=== PATIENT | male | born 1985 | race Caucasian/White ===

== ENCOUNTER 2020-01-06 20:17 | Emergency (ER) | payer MEDICAID, OTHER ==
--- NOTE | 2020-01-06 20:27 | EDM.PDOC ---
ED HPI GENERAL MEDICAL PROBLEM - General Stated Complaint: EMS ARRIVAL CLAVICLE FRACTURE Time Seen by Provider: 01/06/20 20:20 Source of Information: Reports: Patient History Limitations: Reports: No Limitations - History of Present Illness INITIAL COMMENTS - FREE TEXT/NARRATIVE: HISTORY AND PHYSICAL: History of present illness: Patient is a 34-year-old male who presents to the emergency room from [facility] with complaints of left clavicular pain. He was on the bottom bunk when he fell onto the ground landing on his left shoulder. He states although he landed on his scapula he has clavicle pain. He denies hitting his head or having any loss of consciousness. Denies any other extremity involvement. Offers no systemic complaints. Patient is accompanied by law enforcement. Review of systems: As per history of present illness and below otherwise all systems reviewed and negative. Past medical history: As per history of present illness and as reviewed below otherwise noncontributory. Surgical history: As per history of present illness and as reviewed below otherwise noncontributory. Social history: See social history for further information Family history: As per history of present illness and as reviewed below otherwise noncontributory. Physical exam: General: Well-developed and well-nourished 34-year-old male. Alert and oriented. Nontoxic-appearing and in no acute distress. HEENT: Atraumatic, normocephalic, pupils equal and reactive bilaterally, negative for conjunctival pallor or scleral icterus, mucous membranes moist, TMs normal bilaterally, throat clear, neck supple, nontender, trachea midline. No drooling or trismus noted. No meningeal signs. No hot potato voice noted. Lungs: Clear to auscultation, breath sounds equal bilaterally, chest nontender. Heart: S1S2, regular rate and rhythm without overt murmur Abdomen: Soft, nondistended, nontender. Negative for masses or hepatosplenomegaly. Negative for costovertebral tenderness. Pelvis: Stable nontender. C-spine/Back: No pinpoint vertebral tenderness upon palpation. No crepitus, step-offs or obvious deformities. Patient is ambulatory into the emergency room without difficulty or deficit. Able to rock back on heels and walk on toes. Denies any urinary or fecal incontinence. Denies any numbness, tingling or saddle paresthesia. No concerns of serious infection, fracture or cord compression, or cauda equina syndrome. Deep tendon reflexes brisk bilaterally. Skin: Intact, warm, dry. No lesions or rashes noted. Extremities: Pain with palpation along the left clavicle, no tenting or broken skin. He moves all extremities per self without difficulty or deficits. Neurovascular unremarkable. Neuro: Awake, alert, oriented. Cranial nerves II through XII unremarkable. Cerebellum unremarkable. Motor and sensory unremarkable throughout. Exam nonfocal. Notes: X-ray shows old fracture deformity involving the left lateral clavicle. Small sub-arachnoidal spur. No fracture or dislocation involving the left clavicle shoulder or humeral head. There is a mild stable nodule involving the left lung apex which is stable. Remainder is negative. Offered patient a sling. Or the sling over the next 2 to 3 days, if pain continues wear until following up with orthopedics. We discussed follow-up care with orthopedic provider. Supportive care measures were reviewed and discussed. Voices understanding and is agreeable to plan of care. Denies any further questions or concerns at this time. Diagnostics: Left shoulder x-ray, left clavicle Therapeutics: Sling Prescription: None Impression: Encounter for medical screening exam Shoulder injury left Plan: 1. Rest, ice, elevate the affected extremity. Please wear the splint as directed. 2. Tylenol and/or Ibuprofen as needed for pain management. 3. Follow up with the Orthopedic provider as we discussed. Return to the ED as needed and as discussed. Definitive disposition and diagnosis as appropriate pending reevaluation and review of above. - Related Data Allergies Allergy/AdvReac Type Severity Reaction Status Date / Time No Known Allergies Allergy Verified 06/14/18 09:55 Home Meds: Home Meds . [No Known Home Meds] 06/14/18 [History] Past Medical History - Past Health History Medical/Surgical History: Denies Medical/Surgical History HEENT History: Reports: None Cardiovascular History: Reports: None Respiratory History: Reports: None Gastrointestinal History: Reports: None Musculoskeletal History: Reports: Other (See Below) Other Musculoskeletal History: hx broken collar bone L Neurological History: Reports: None Psychiatric History: Reports: None Endocrine/Metabolic History: Reports: None Dermatologic History: Reports: None - Infectious Disease History Infectious Disease History: Reports: None - Past Surgical History HEENT Surgical History: Reports: None Cardiovascular Surgical History: Reports: None Respiratory Surgical History: Reports: None Neurological Surgical History: Reports: None Social & Family History - Family History Family Medical History: Noncontributory - Caffeine Use Caffeine Use: Reports: Coffee, Energy Drinks, Soda, Tea ED ROS GENERAL - Review of Systems Review Of Systems: Comprehensive ROS is negative, except as noted in HPI. ED EXAM, UPPER BACK/NECK PAIN - Physical Exam Exam: See Below (See dictation) Course - Orders/Labs/Meds Orders: Active Orders 24 hr Category Date Time Status DME for Discharge [COMM] Stat Oth 01/06/20 20:38 Ordered Departure - Departure Time of Disposition: 21:12 Disposition: Home, Self-Care 01 Clinical Impression: Encounter for medical screening examination Injury of left shoulder Qualifiers: Encounter type: initial encounter Qualified Code(s): S49.92XA - Unspecified injury of left shoulder and upper arm, initial encounter - Discharge Information Instructions: Shoulder Pain, [id number] Referrals: PCP,None [Primary Care Provider] - Additional Instructions: The following information is given to patients seen in the emergency department who are being discharged to home. This information is to outline your options for follow-up care. We provide all patients seen in our emergency department with a follow-up referral. The need for follow-up, as well as the timing and circumstances, are variable depending upon the specifics of your emergency department visit. If you don't have a primary care physician on staff, we will provide you with a referral. We always advise you to contact your personal physician following an emergency department visit to inform them of the circumstance of the visit and for follow-up with them and/or the need for any referrals to a consulting specialist. The emergency department will also refer you to a specialist when appropriate. This referral assures that you have the opportunity for follow-up care with a specialist. All of these measure are taken in an effort to provide you with optimal care, which includes your follow-up. Under all circumstances we always encourage you to contact your private physician who remains a resource for coordinating your care. When calling for follow-up care, please make the office aware that this follow-up is from your recent emergency room visit. If for any reason you are refused follow-up, please contact the [facility] Emergency Department at and asked to speak to the emergency department charge nurse. [facility] Primary Care [address] [place] [address] [facility] [address] [place] [address] Thank you for choosing the [facility] emergency department in [place] for your medical needs today. It was a pleasure caring for you. You were seen in the emergency department for shoulder injury. Right shoulder an old fracture deformity, no new fractures, dislocation or new findings are noted. 1. Rest, ice, elevate the affected extremity. Please wear the splint as directed. 2. Tylenol and/or Ibuprofen as needed for pain management. 3. Follow up with the Orthopedic provider as we discussed. Return to the ED as needed and as discussed.
--- NOTE | 2020-01-06 20:58 | CR ---
INDICATION: Rolled off bunk bed and fell on shoulder. Technique : Two views left clavicle and three views left shoulder COMPARISON: Left shoulder and clavicle views 01/10/2018. FINDINGS: Old fracture deformity involving the left lateral clavicle. Small subacromial spur new. No acute fracture or dislocation involving the left clavicle, shoulder or humeral head. Mild stable nodularity involving left lung apex is likely fibrotic given the stability. Remainder negative. Dictated by Josemanuel Patel MD @ Jan 06 2020 8:54PM Signed by Dr. Josemanuel Patel @ Jan 06 2020 8:56PM
--- NOTE | 2020-01-06 20:58 | CR ---
INDICATION: Rolled off bunk bed and fell on shoulder. Technique : Two views left clavicle and three views left shoulder COMPARISON: Left shoulder and clavicle views 01/10/2018. FINDINGS: Old fracture deformity involving the left lateral clavicle. Small subacromial spur new. No acute fracture or dislocation involving the left clavicle, shoulder or humeral head. Mild stable nodularity involving left lung apex is likely fibrotic given the stability. Remainder negative. Dictated by Josemanuel Patel MD @ Jan 06 2020 8:53PM Signed by Dr. Josemanuel Patel @ Jan 06 2020 8:56PM
[2020-01-06 21:16] VITALS: BP 120/81; PULSE 85
[2020-01-06] MEDS ORDERED: Ibuprofen 800 MG Tab PO ONE (21:18)
[2020-01-06] MEDS ORDERED: Ibuprofen 800 MG Tab ONE (21:19)
== END 2020-01-06 21:26 ==
LOC: MW.ED 20:17
DX: S49.92XA Unspecified injury of left shoulder and upper arm, initial encounter (principal); W08.XXXA Fall from other furniture, initial encounter; Y92.149 Unspecified place in prison as the place of occurrence of the external cause
CPT/HCPCS: 73000; 73030; 99283; A9270

== ENCOUNTER 2020-03-13 22:41 | Emergency (ER) | payer SELFPAY ==
--- NOTE | 2020-03-13 23:29 | EDM.PDOC ---
ED HPI GENERAL MEDICAL PROBLEM - General Chief Complaint: General Stated Complaint: medical clearance Time Seen by Provider: 03/13/20 23:22 - History of Present Illness INITIAL COMMENTS - FREE TEXT/NARRATIVE: CHIEF COMPLAINT(S): Medical clearance HISTORY OF PRESENT ILLNESS: This is a 34-year-old man without any significant past medical history who comes to the emergency department with a chief complaint of medical clearance. 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 The patient currently denies any symptoms at all whatsoever. He denies any fevers, chills, chest pain, shortness of breath, abdominal pain, nausea or vomiting. He denies any history of contact with anybody with coronavirus. He denies any symptoms of coronavirus. He denies any ingestions. REVIEW OF SYSTEMS: Constitutional: Denies fever, chills. Eyes: Denies eye pain Ears, Nose, Mouth, & Throat: Denies earache Cardiovascular: Denies chest pain Respiratory: Denies shortness of breath Gastrointestinal: Denies Nausea, vomiting, diarrhea, hematochezia. Genitourinary: Denies hematuria Skin:Denies a rash Neurological: Denies blurred vision Psychiatric: Denies depression PAST MEDICAL HISTORY: As per history of present illness and as reviewed below otherwise noncontributory. SURGICAL HISTORY: As per history of present illness and as reviewed below otherwise noncontributory. SOCIAL HISTORY: As per history of present illness and as reviewed below otherwise noncontributory. FAMILY HISTORY: As per history of present illness and as reviewed below otherwise noncontributory. EXAMINATION OF ORGAN SYSTEMS/BODY AREAS: Constitutional: Blood pressure was 141/89, heart rate 81, respiratory rate 18 with an oxygen saturation 98% on room air. Temperature 36.6 General: Overall well-appearing man who is in no acute distress Psychiatric: Appropriate mood and affect. Eyes: No scleral icterus or conjunctival erythema ENMT: Moist mucous membranes. No pharyngeal erythema Cardiovascular: Regular, rate, and rhythym. No gallops, murmurs, or rubs. Bilateral upper extremity pulses symmetric and intact. No peripheral edema. No JVD. Respiratory: Lungs clear to auscultation bilaterally. No wheezes, rales, or rhonchi. Gastrointestinal: Soft, non-tender, non-distended. Normoactive bowel sounds Genitourinary: No suprapubic tenderness Musculoskeletal: Normal range of motion. Skin: No lesions or abrasions. Neurological: Alert, GCS 15 MEDICAL DECISION MAKING AND COURSE IN THE ED WITH INTERPRETATION/REVIEW OF DIAGNOSTIC STUDIES: This is a 34-year-old man without any significant past medical history who comes to the emergency department with chief complaint of medical clearance who has no complaints has a normal physical examination and normal vital signs except for mildly elevated blood pressure. At this time I do not believe the patient requires any further work-up and is cleared medically for transportation to the residential. DISPOSITION: The patient was transported to residential in stable condition CONDITION: Good PROCEDURES: None FINAL IMPRESSION(S)/DIAGNOSES: 1. Acute encounter for medical clearance Wilmer Nice M.D. upper left jaw Pain Score (Numeric/FACES): 8 - Related Data Allergies Allergy/AdvReac Type Severity Reaction Status Date / Time No Known Allergies Allergy Verified 03/13/20 22:57 Home Meds: Home Meds . [No Known Home Meds] 06/14/18 [History] Past Medical History - Past Health History Medical/Surgical History: Denies Medical/Surgical History HEENT History: Reports: None Cardiovascular History: Reports: None Respiratory History: Reports: None Gastrointestinal History: Reports: None Genitourinary History: Reports: None Musculoskeletal History: Reports: Other (See Below) Other Musculoskeletal History: hx broken collar bone L Neurological History: Reports: None Psychiatric History: Reports: None Endocrine/Metabolic History: Reports: None Hematologic History: Reports: None Immunologic History: Reports: None Dermatologic History: Reports: None - Infectious Disease History Infectious Disease History: Reports: None - Past Surgical History Head Surgeries/Procedures: Reports: None HEENT Surgical History: Reports: None Cardiovascular Surgical History: Reports: None Respiratory Surgical History: Reports: None Neurological Surgical History: Reports: None Social & Family History - Family History Family Medical History: Noncontributory Endocrine/Metabolic: Reports: None - Caffeine Use Caffeine Use: Reports: Energy Drinks, Soda - Recreational Drug Use Recreational Drug Use: Yes ED ROS GENERAL - Review of Systems Review Of Systems: See Below ED EXAM, GENERAL - Physical Exam Exam: See Below Course - Vital Signs Last Recorded V/S: Last Vital Signs Temp 36.1 C 03/13/20 23:43 Pulse 95 03/13/20 23:43 Resp 14 03/13/20 23:43 BP 137/90 03/13/20 23:43 Pulse Ox 97 03/13/20 23:43 Departure - Departure Time of Disposition: 23:36 Disposition: Home, Self-Care 01 Condition: Good Clinical Impression: Medical clearance for incarceration - Discharge Information *PRESCRIPTION DRUG MONITORING PROGRAM REVIEWED*: No *COPY OF PRESCRIPTION DRUG MONITORING REPORT IN PATIENT INES: No Instructions: Medical Screening Exam Referrals: PCP,None [Primary Care Provider] - Forms: ED Department Discharge Care Plan Goals: The following information is given to patients seen in the emergency department who are being discharged to home. This information is to outline your options for follow-up care. We provide all patients seen in our emergency department with a follow-up referral. The need for follow-up, as well as the timing and circumstances, are variable depending upon the specifics of your emergency department visit. If you don't have a primary care physician on staff, we will provide you with a referral. We always advise you to contact your personal physician following an emergency department visit to inform them of the circumstance of the visit and for follow-up with them and/or the need for any referrals to a consulting specialist. The emergency department will also refer you to a specialist when appropriate. This referral assures that you have the opportunity for follow-up care with a specialist. All of these measure are taken in an effort to provide you with optimal care, which includes your follow-up. Under all circumstances we always encourage you to contact your private physician who remains a resource for coordinating your care. When calling for follow-up care, please make the office aware that this follow-up is from your recent emergency room visit. If for any reason you are refused follow-up, please contact the [facility] Emergency Department at and asked to speak to the emergency department charge nurse. [facility] Primary Care [address] [place] [id number] [facility] [address] [place] [id number] Sepsis Event Note (ED) - Evaluation Sepsis Screening Result: No Definite Risk - Focused Exam Vital Signs: Vital Signs Temp Pulse Resp BP Pulse Ox 03/13/20 23:43 36.1 C 95 14 137/90 97 03/13/20 22:57 36.6 C 81 18 141/89 H 98
[2020-03-13 23:44] VITALS: BP 137/90; PULSE 95
== END 2020-03-13 23:45 ==
LOC: MW.ED 22:41
DX: Z02.89 Encounter for other administrative examinations (principal)
CPT/HCPCS: 99282; 99283

== ENCOUNTER 2022-11-29 12:56 | Emergency (ER) | payer OTHER ==
[2022-11-29] MEDS ORDERED: Acetaminophen 500 MG Tab PO STA (13:14)
[2022-11-29] MEDS ORDERED: Ibuprofen 800 MG Tab PO STA (13:14)
[2022-11-29 14:34] VITALS: BP 119/88; PULSE 78
== END 2022-11-29 14:38 ==
LOC: MW.ED 12:56
DX: S93.402A Sprain of unspecified ligament of left ankle, initial encounter (principal); F17.210 Nicotine dependence, cigarettes, uncomplicated; Z02.89 Encounter for other administrative examinations; X50.1XXA Overexertion from prolonged static or awkward postures, initial encounter; Y93.67 Activity, basketball
CPT/HCPCS: 73610; 73630; 99283; A9270

== ENCOUNTER 2023-11-22 13:23 | Emergency (ER) | payer SELFPAY ==
[2023-11-22] MEDS: Ketorolac 30 MG/ML SDV IM STA (14:30)
[2023-11-22 16:12] VITALS: BP 126/78; PULSE 84
== END 2023-11-22 15:33 | disposition home or self-care (01) ==
LOC: MW.ED 13:23
DX: S93.401A Sprain of unspecified ligament of right ankle, initial encounter (principal); S93.601A Unspecified sprain of right foot, initial encounter; F17.210 Nicotine dependence, cigarettes, uncomplicated; Z75.8 Other problems related to medical facilities and other health care; X58.XXXA Exposure to other specified factors, initial encounter
CPT/HCPCS: 73610; 96372; 99283; J1885

== ENCOUNTER 2024-06-04 17:53 | Day surgery (SDC) | payer SELFPAY ==
[2024-06-04 19:10] LABS: BASOPHILS ABSOLUTE AUTO 0.07 K/uL (0.00-0.20); BASOPHILS PERCENT AUTO 0.5 % (0.0-1.0); EOSINOPHILS ABSOLUTE AUTO 0.11 K/uL (0.00-0.45); EOSINOPHILS PERCENT AUTO 0.8 % (0.0-6.0); HEMATOCRIT 46.3 % (42.0-52.0); HEMOGLOBIN 16.2 g/dL (14.0-18.0); IMMATURE GRAN ABSOLUTE AUTO 0.05 K/uL (0.00-0.05); IMMATURE GRAN PERCENT AUTO 0.4 % (0.0-0.4); LYMPHOCYTES ABSOLUTE AUTO 1.47 K/uL (1.00-4.80); LYMPHOCYTES PERCENT AUTO 10.9 % (24.0-44.0); MEAN CORPUSCULAR HEMOGLOBIN 29.3 pg (28.0-32.0); MEAN CORPUSCULAR VOLUME 83.7 fL (83.0-99.0); MEAN PLATELET VOLUME 9.3 fL (9.4-12.4); MONOCYTES ABSOLUTE AUTO 0.76 K/uL (0.00-0.80); MONOCYTES PERCENT AUTO 5.6 % (0.0-8.0); NEUTROPHILS ABSOLUTE AUTO 11.08 K/uL (1.80-7.70); NEUTROPHILS PERCENT AUTO 81.8 % (41.0-71.0); PLATELET COUNT,PLT 244 K/uL (150-400); RED BLOOD CELL COUNT 5.53 M/uL (4.52-5.90); WHITE BLOOD CELL COUNT,WBC 13.54 K/uL (3.9-11.3)
[2024-06-04 19:34] LABS: A/G RATIO 1.1 (0.9-1.6); ALBUMIN 4.1 g/dL (3.4-5.0); BILIRUBIN TOTAL 0.4 mg/dL (0.2-1.0); CALCIUM 8.5 mg/dL (8.5-10.1); CARBON DIOXIDE,CO2 28.2 mmol/L (21.0-32.0); EST CRCL DRUG DOSING (CG) 111.01 mL/min; MAGNESIUM 1.8 mg/dL (1.8-2.4); POTASSIUM,K 4.2 mmol/L (3.5-5.1); PROTEIN TOTAL,TP 7.8 g/dL (6.4-8.2)
[2024-06-04] MEDS: Sodium Chloride 0.9% 1,000 ML IV STA (20:23)
[2024-06-04] MEDS: Ondansetron 4 MG/2 ML SDV IVPUSH PRN (20:24)
[2024-06-04] MEDS: Morphine 4 MG/ML Syringe IVPUSH ONE (20:24)
[2024-06-04] MEDS ORDERED: ceFAZolin 1 GM Vial ONE (21:10)
[2024-06-04] MEDS ORDERED: Bupivacaine 0.5% 30 ML SDV ONE (21:10)
[2024-06-04] MEDS ORDERED: dexmedeTOMIDine HCl 200 MCG/2 ML SDV ONE (21:12)
[2024-06-04] MEDS ORDERED: Propofol 200 MG/20 ML SDV ONE (21:12)
[2024-06-04] MEDS ORDERED: fentaNYL 100 MCG/2 ML SDV ONE (21:12)
[2024-06-04] MEDS ORDERED: Rocuronium Bromide 50 MG/5 ML Syringe ONE (21:12)
[2024-06-04] MEDS ORDERED: Water For Injection, Sterile 20 ML ONE (21:12)
[2024-06-04] MEDS ORDERED: Bupivacaine 0.25% 30 ML SDV ONE (21:18)
[2024-06-04] MEDS: Lactated Ringers 1,000 ML IV SCH (21:35)
[2024-06-04] MEDS ORDERED: Dexamethasone 4 MG/ML 5 ML MDV ONE ×2 (22:02→22:30)
[2024-06-04] MEDS ORDERED: Ondansetron 4 MG/2 ML SDV ONE ×2 (22:02→22:30)
[2024-06-04] MEDS ORDERED: cefOXitin 1 GM Vial ONE (22:08)
[2024-06-04] MEDS ORDERED: Ketorolac 30 MG/ML SDV ONE (23:03)
[2024-06-04] MEDS ORDERED: Sugammadex Sodium 200 MG/2 ML VIAL IV ONE (23:03)
[2024-06-04] MEDS ORDERED: HYDROmorphone 2 MG/ML Syringe ONE (23:07)
[2024-06-04] MEDS ORDERED: Acetaminophen/HYDROcodone 325-5 MG Tab PO PRN (23:26)
[2024-06-04] MEDS ORDERED: Ondansetron 4 MG/2 ML SDV IVPUSH PRN (23:26)
[2024-06-04] MEDS ORDERED: Lactated Ringers 1,000 ML IV SCH (23:30)
[2024-06-04] MEDS ORDERED: Naloxone 0.4 MG/ML SDV IVPUSH PRN (23:30)
[2024-06-05] MEDS: Morphine 2 MG/ML SYRINGE IVPUSH PRN (03:52)
[2024-06-05] MEDS: Acetaminophen/HYDROcodone 325-5 MG Tab PO PRN (07:54)
[2024-06-05 11:06] VITALS: BP 144/70; PULSE 78
== END 2024-06-05 11:15 | disposition home or self-care (01) ==
LOC: MW.ED 17:53 → MW.SDS 21:51 → MW.MS 21:51 → MW.SDS 06-05 11:15
PROVIDERS: ATTEND Surgery
DX: K35.33 Acute appendicitis with perforation, localized peritonitis, and gangrene, with abscess (principal); F17.210 Nicotine dependence, cigarettes, uncomplicated
CPT/HCPCS: 36415; 44970; 80053; 83690; 83735; 85025; 96361; 96374; 96375; 99285; A9270; J0131; J0665; J0694; J1100; J1171; J1885; J2270; J2405; J2704; J3010; J3490; J7030; J7120; 00840; 64486; 99283; J0690